=== PATIENT | male | born 1955 | race Caucasian/White ===

== ENCOUNTER 2021-11-09 17:55 | Emergency (ER) | payer BC ==
[2021-11-09] MEDS ORDERED: Lidocaine 1% 5 ML VIAL INJECT ONE (18:25)
[2021-11-09] MEDS ORDERED: Diphtheria,Pertussis(Acell),Tetanus Vaccine 0.5 ML Syringe IM ONE (19:37)
== END 2021-11-09 20:26 | disposition home or self-care (01) ==
LOC: JP.ED 17:55
DX: S60.351A Superficial foreign body of right thumb, initial encounter (principal); E78.00 Pure hypercholesterolemia, unspecified; Z88.5 Allergy status to narcotic agent; Z23 Encounter for immunization; W45.8XXA Other foreign body or object entering through skin, initial encounter
CPT/HCPCS: 90471; 90715; 99283-25